=== PATIENT | female | born 1965 | race African-American/Black ===

== ENCOUNTER 2019-05-30 06:17 | Day surgery (SDC) | payer BC, MEDICAID ==
[~2019-05-30] VITALS: Ht 167.6 cm; Wt 106.9 kg
[~2019-05-30 06:17] MED LIST: ARIP30TA4 PO; ATEN50TA PO; BIKTARVY; ESCI20TA38 PO; VITA200C45 PO
[2019-05-30 07:18] VITALS: Ht 167.6 cm; Wt 106.9 kg
--- NOTE | 2019-05-30 07:27 | PREAC ---
Date/Time of Note Date/Time of Note DATE: 05/30/19 TIME: 07:25 Anesthesia Eval and Record Evaluation Time Pre-Procedure Interview DATE: 05/30/19 TIME: 07:25 Age 53 Sex female NPO: 8 hrs Preoperative diagnosis Abdominal Pain and GERD Planned procedure EGD & Colonoscopy Past Medical History Past Medical History: Includes Cardio: HTN, Dyslipidemia GI: Obesity Psych: Anxiety, Bipolar Infection(s): HIV, Hep C Surgery & Anesthesia Issues No known issue Meds Anticoagulation: No Beta Penelope within 24 hr: No Reason Beta Penelope not given: Pt. not on B-Penelope Reported Medications Vitamin E* (Vitamin E*) 200 Unit Capsule, 200 UNIT PO DAILY, CAP 05/30/19 [Biktarvy] No Conflict Check 05/30/19 Atenolol* (Atenolol*) 50 Mg Tablet, 50 MG PO DAILY, #30 TAB 05/30/19 Escitalopram Oxalate* (Escitalopram Oxalate*) 20 Mg Tablet, 20 MG PO DAILY, #30 TAB 05/30/19 Aripiprazole* (Abilify*) 30 Mg Tablet, 30 MG PO DAILY, #30 TAB 05/30/19 Meds reviewed: Yes Allergies Coded Allergies: No Known Allergy (Unverified , 05/30/19) Allergies Reviewed: Yes Labs/Studies Labs Reviewed: Reviewed by anesthesiologist test: N/A Studies: ECG (n/a), CXR (n/a) Pre-procedure Exam Airway: Adequate mouth opening, Adequate thyromental dist Mallampati: Mallampati II Teeth: Normal Lung: Normal Heart: Normal ASA Physical Status ASA physical status: 3 Emergency: None Planned Anesthetic General/MAC: MAC Planned Pain Management Parenteral pain med Pre-operative Attestations Prior to commencing anesthesia and surgery, the patient was re-evaluated, there was verification of: *The patient's identity *The results of appropriate recent lab work and preoperative vital signs *The above evaluation not changing prior to induction *Anesthetic plan, risk benefits, alternative and complications discussed with patient/family; questions answered; patient/family understands, accepts and wishes to proceed. CANDACE GILMAN MD May 30, 2019 07:27
[2019-05-30 07:39] VITALS: BP 156/92; PULSE 66; RESP 18
[2019-05-30] MEDS ORDERED: PROPOFOL 40 ML ONE (08:20)
--- NOTE | 2019-05-30 08:21 | PAC ---
Date/Time of Note Date/Time of Note DATE: 05/30/19 TIME: 08:21 Post-Anesthesia Notes Post-Anesthesia Note Last documented vital signs T: 98.0 Activity: WNL Respiratory function: WNL Cardiovascular function: WNL Mental status: Baseline Pain reasonably controlled: Yes Hydration appropriate: Yes Nausea/Vomiting absent: Yes CANDACE GILMAN MD May 30, 2019 08:21
[2019-05-30 08:46] VITALS: BP 147/74; RESP 66
== END 2019-05-30 11:49 | disposition home or self-care (01) ==
LOC: GIL 06:17
PROVIDERS: ATTEND Internal Medicine Gastroenterology
DX: Z12.11 Encounter for screening for malignant neoplasm of colon (principal); K64.8 Other hemorrhoids; K29.50 Unspecified chronic gastritis without bleeding; K20.8 Other esophagitis
CPT/HCPCS: 43239; 45378; Z7610; 88305; 88312